=== PATIENT | female | born 1990 | race Caucasian/White ===

== ENCOUNTER 2020-12-21 09:26 | Inpatient (IN) ==
[2020-12-21] MEDS ORDERED: Lactated Ringers 1000 ml BAG 1,000 ML IV ONE (11:09)
[2020-12-21] MEDS ORDERED: Buffered Lidocaine 1% SYRIN 1 ml INTRADERM ONE (11:09)
[2020-12-21] MEDS ORDERED: Lactated Ringers 1000 ml BAG 1,000 ML IV SCH (12:00)
[2020-12-21 14:58] LABS: Urine Benzodiazepine Screen None Detected (None Detect); Urine Cannabinoids Screen None Detected (None Detect); Urine Opiates Screen None Detected (None Detect)
[2020-12-21] MEDS ORDERED: fentaNYL 100 mcg/2 ml 50 MCG/ML VIAL IV SLOW PU PRN (21:06)
[2020-12-21 21:19] LABS: ABS Lymphocytes 1.3 10^3/ul (1.0-4.8); ABS Monocytes 0.6 10^3/ul (0-0.8); ABS Neutrophils 13.3 10^3/ul (1.5-7.7); Eosinophil % 0.1 %; Hematocrit 35 % (35-47); Lymphocyte % 8.7 %; Mean Corpuscular HGB Conc 34 g/dL (31-36); Mean Corpuscular Hemoglobin 30 pg (27-31); Mean Corpuscular Volume 87 fL (80-97); Mean Platelet Volume 9.3 fL (7.4-10.4); Platelet Count 231 10^3/uL (150-450); Red Blood Count 4.02 10^6 /uL (3.70-4.87); Red Cell Distribution Width 13 % (10-15); White Blood Count 15.3 10^3/uL (3.5-10.8)
[2020-12-22] MEDS ORDERED: Oxytocin in LR 20 UNITS/1,000 ML BAG IVPB ONE (00:52)
[2020-12-22] MEDS ORDERED: Dibucaine 1% OINT 28.35 GM TUBE PR PRN (01:32)
[2020-12-22] MEDS ORDERED: Methylergonovine 0.2 mg AMPULE 1 ml AMP IM ONE (01:32)
[2020-12-22] MEDS ORDERED: Witch Hazel PAD JAR TOPICAL PRN (01:32)
[2020-12-22] MEDS: Oxytocin in LR 20 UNITS/1,000 ML BAG IVPB SCH ×2 (01:52→03:21)
[2020-12-22 01:56] LABS: ABS Lymphocytes 0.8 10^3/ul (1.0-4.8); ABS Monocytes 0.8 10^3/ul (0-0.8); Hematocrit 31 % (35-47); Hemoglobin 10.5 g/dL (12.0-16.0); Lymphocyte % 3.9 %; Mean Corpuscular HGB Conc 34 g/dL (31-36); Mean Corpuscular Hemoglobin 30 pg (27-31); Mean Corpuscular Volume 87 fL (80-97); Mean Platelet Volume 9.3 fL (7.4-10.4); Platelet Count 215 10^3/uL (150-450); Red Cell Distribution Width 12 % (10-15); White Blood Count 20.7 10^3/uL (3.5-10.8)
[2020-12-22] MEDS ORDERED: Lactated Ringers 1000 ml BAG 1,000 ML IV SCH (02:00)
[2020-12-22] MEDS ORDERED: Lidocaine 1% VIAL 10 MG/ML VIAL ONE (13:59)
[2020-12-23 06:38] LABS: ABS Eosinophils 0.1 10^3/ul (0-0.6); ABS Lymphocytes 2.4 10^3/ul (1.0-4.8); ABS Monocytes 0.9 10^3/ul (0-0.8); ABS Neutrophils 9.9 10^3/ul (1.5-7.7); Eosinophil % 0.7 %; Hematocrit 22 % (35-47); Hemoglobin 7.4 g/dL (12.0-16.0); Lymphocyte % 17.9 %; Mean Corpuscular HGB Conc 34 g/dL (31-36); Mean Corpuscular Hemoglobin 30 pg (27-31); Mean Corpuscular Volume 88 fL (80-97); Mean Platelet Volume 8.1 fL (7.4-10.4); Platelet Count 177 10^3/uL (150-450); Red Blood Count 2.45 10^6 /uL (3.70-4.87); Red Cell Distribution Width 13 % (10-15); White Blood Count 13.3 10^3/uL (3.5-10.8)
[2020-12-23 08:03] VITALS: BP 115/73
== END 2020-12-23 13:23 | disposition home or self-care (01) | DRG 560 ==
LOC: MCHOBOUT 09:26 → MCHOB 10:30
PROVIDERS: ADMIT Midwife; ATTEND Midwife